=== PATIENT | female | born 1950 | race Caucasian/White ===

== ENCOUNTER 2020-05-13 10:30 | Emergency (ER) | payer OTHER ==
--- NOTE | 2020-05-13 10:52 | PDOC ---
History of Present Illness - General Chief Complaint: Injury Stated Complaint: FELL Time Seen by Provider: 05/13/20 10:51 History Source: Patient Exam Limitations: No Limitations - History of Present Illness Initial Comments: 69 y/o female presenting to [facility] complaining of episodic bifrontal headache and difficulty walking after falling twice over the past two weeks. Reports both falls were mechanical trips. Denies LOC, N/V, or retrograde amnesia. Able to walked immediately after the incidents. Thor weakness in her left arm and leg after the initial fall. Evaluated by her PCP and sent to this department for further eval, but left prior to medical evaluation. Pt fell again the next day. No acute changes this morning. Partner at bedside reports the pt has displayed difficulty walking up and down stairs. Pt denies blurry / change in vision, change in hearing, difficulty speaking, or facial asymmetry. States the weakness in her arm and leg have "basically resolved." Denies taking any AC. H/o Lupus not on modulating medications. Past History - Travel History Traveled outside of the country in the last 30 days: No Close contact w/someone who was outside of country & ill: No - Medical History Allergies/Adverse Reactions: Allergies Allergy/AdvReac Type Severity Reaction Status Date / Time latex Allergy Verified 05/07/20 12:05 Home Medications: Ambulatory Orders Aspirin [ASA -] 81 mg PO DAILY 05/07/20 Lisinopril 20 mg PO BID 05/07/20 Aspirin/Dipyridamole [Aggrenox -] 1 combo PO BID #60 capsule 05/13/20 Atorvastatin Ca [Lipitor] 40 mg PO HS #30 tablet 05/13/20 HTN: Yes Other medical history: Lupus Review of Systems - Review of Systems Able to Perform ROS?: Yes Comments:: 10 point review of systems completed. All systems negative except as noted above. *Physical Exam - Physical Exam Vital signs and nursing notes reviewed. Constitutional- Well-developed, well-nourished adult female in no acute distress or obvious discomfort. Found semi-fowlers on hospital bed. Answered all questions appropriately and completely. Head- Normocephalic. No obvious external signs of trauma. No facial bone tenderness. No Raccoon eyes. Eyes- Pupils 4mm and PERRL. EOMI. Sclerae white. Conjunctiva moist and not injected. Ears- Hearing grossly intact. External auditory canals and tympanic membranes pearly sosa. No Polk's sign. Nose- No nasal discharge. Neck- Supple, trachea is midline. No midline or paraspinal cervical tenderness. Able to laterally rotate neck >45 degrees without difficulty. Cardiovascular / Chest- Regular rate and regular rhythm. No murmur, rubs, cli cks, or gallops. Peripheral pulses- radial pulses full. Respiratory- Breathing unlabored. Speaking in multi-word responses without pausing. Equal chest rise and fall. Clear to auscultation bilaterally. No stridor, no wheezing, no rhonchi. Gastrointestinal- abdomen is soft, non-tender, non-distended. Neuro- Alert and oriented x4. Moving all four extremities spontaneously. No facial asymmetry. No slurred speech. No focal deficits. No upper or lower extremity drift. Cranial nerves intact. Sensation to all four extremities intact. Proximal and distal strength 5/5. Male Model strength 5/5 - equal and symmetric. Plantar flexion and dorsiflexion 5/5. No nuchal rigidity. Abnormal left sided finger to nose and heel to montano. Skin- Warm, dry, and intact. No bruising or other signs of trauma. Back- No midline thoracic or lumbar spinal or paraspinal tenderness. No overlying skin changes. Psych- Affect- appropriate. Mood- normal. Speech was non-labored, non- pressured. Medical Decision Making - Medical Decision Making 69 y/o female presenting with headaches, improving left side weakness, and disequilibrium. Afebrile. Vitals unremarkable for hypotension or tachycardia. Physical exam as described above. DDx includes subdural hematoma vs CVA vs TIA vs post-concussive syndrome. HCT remarkable for left lacunar infarct. No acute hemorrhage. Pt declined to have blood drawn or EKG performed. Stated she did not want to be hospitalized. Spent approx. 20 minutes in total docussion with the pt encouraging admission for further neurologic evaluation. Explained risks of further injury or . Pt repeatedly declined. Stated she was afraid of hospitals and that she did not want her to be alone in their house for personal reasons. Denied concern for her physical safety in her relationship. Declined further information on [facility] [employer] for women. Pt found to be A/Ox4 with intact insight. Signed AMA form. Final AMA conversation witnessed by . Pts PCP made aware of the CT finding via telephone by ED Attending. The PCP will prescribe refill for the pts BP medication. Case discussed with Dr. Díaz of neurology service via telephone by ED Attending. Requested the pt be switched from ASA to Aggrenox and prescribed a statin. Will have his office reach out to schedule a f/u appt on Sunday. Case discussed with ED Attending Dr. Saenz. Ludwig Gresham M.D., PGY3 Emergency Medicine Residency Discharge - Discharge Information Problems reviewed: Yes Clinical Impression/Diagnosis: Lacunar infarction, CVA (cerebral vascular accident) Condition: Stable Disposition: AGAINST MEDICAL ADVICE - Admission No - Additional Discharge Information Prescriptions: Aspirin/Dipyridamole [Aggrenox -] 1 combo PO BID #60 capsule Atorvastatin Ca [Lipitor] 40 mg PO HS #30 tablet - Follow up/Referral Referrals: Abimael Hermosillo MD [Primary Care Provider] - Raghu Díaz MD [Staff Physician] - - Patient Discharge Instructions Patient Printed Discharge Instructions: Dipyridamole (Alternative Therapy), DI for Stroke-Ischemic, Atorvastatin Additional Instructions: You were seen today for a headache and difficulty walking. Your CT scan was concerning for a stroke. You declined to be admitted to the hospital for further evaluation. Leaving the hospital at this point is against medical advice. I have placed a referral for you to see a neurologist, Dr. Díaz. His office will call to schedule an appointment for you on Sunday. He would like you to stop taking the Aspirin and start taking a medication called Aggrenox and a statin. I have sent a prescription for both medications to your pharmacy. Take as directed on the the label. I have included packets with further information about these medications. Continue taking your blood pressure medication as prescribed by Dr. Hermosillo. He will sent a new prescription for the medication to your pharmacy. Return to the ED for new or worsening symptoms. Print Language: BELIZEAN - Post Discharge Activity
[2020-05-13 10:58] VITALS: BP 192/80; PULSE 65; TEMP 97.9; BMI 23.2
--- NOTE | 2020-05-13 13:04 | PDOC ---
Attending Attestation - Resident Resident Name: Ludwig Gresham - ED Attending Attestation I have performed the following: I have examined & evaluated the patient, The case was reviewed & discussed with the resident, I agree w/resident's findings & plan, Exceptions are as noted - HPI HPI: 05/13/20 13:04 69 years old hypertension presents with unsteady gait and falls - Physicial Exam PE: 05/13/20 13:04 Vitals: Triage Vital signs reviewed General Appearance: No acute distress, well nourished well developed, Head: Atraumatic, Eyes: Pupils equal reactive round, extraocular movement intact Neck: Supple; no Nucal rigidity Chest Wall: Nontender Cardiac: Regular rate and rhythym, no murmurs, no rubs, no gallops, Lungs: Clear to auscultation bilateral, good air movement bilaterally, Abdomen: Soft, non distended, normal bowel sounds, non tender to palpation Extremities: Full range of motion to all extremities, no cyanosis, clubbing, or edema Skin: Warm and dry, no rashes or lesions, no rash, no petechiae Neuro: AOX3; cranial Nerves 2-12 grossly intact, strength intact to all extremities, sensation intact to all extremities, heel-to-toe unsteady veers to the left, difficulty with left hand and [id number] Psych: Normal mood, normal affect - Medical Decision Making 69 years old with hypertension presents to the ED for several month history of unsteadiness and falls was sent to the ED last week but AMA prior to evaluation today was amenable to CT but refused blood work Her physical exam showed difficulty with left hand [id number] and slight gait unsteadiness deviating to the left. Her head CT demonstrated a lacunar infarct age-indeterminate Despite greater than 20 minutes at the bedside I am unable to convince the patient to stay in the hospital for neurologic consultation MRI and further evaluation. I have spoken to the patient's primary care doctor who will follow the patient up I have arranged for the patient to be seen by neurology after discussion with Dr. Díaz neurology will start the patient on Aggrenox twice daily simvastatin 40 mg daily she will follow-up next week with her PCP and neurologist she was advised that she can return to the ED at anytime for completion of her work-up and evaluation. Patient understands the risk of a second or worsening stroke but is adamant that she does not want to stay in the hospital The patient is presenting with stroke like symptoms. I am concerned that this may be a CVA. The patient has verbalized understanding of my concerns. The patient is clinically sober and appears free from distracting injury. The patient appears to have intact insight, judgment, and reason. In my opinion, this patient has the capacity to make decisions The risks of leaving against medical advice without further evaluation treatment were discussed with the patient. These risks include worsening stroke , permanant disability. The patient indicated understanding of these risks and appeared to have the capacity to make this decision. The patient is unwilling to stay for a further evaluation MRI neurologic evaluation. Patient is unwilling to remain for additional monitoring. Patient is refusing further care and leaving against medical advice I'm unable to convince the patient to stay. I have asked the patient to return as soon as possible to complete his/her evaluation. I have spoken with the patient's primary care doctor to arrange follow-up for with her PCP as well as with neurology 05/13/20 16:22 Discharge - Discharge Information Problems reviewed: Yes Clinical Impression/Diagnosis: Lacunar infarction, CVA (cerebral vascular accident) Condition: Stable Disposition: AGAINST MEDICAL ADVICE - Additional Discharge Information Prescriptions: Aspirin/Dipyridamole [Aggrenox -] 1 combo PO BID #60 capsule Atorvastatin Ca [Lipitor] 40 mg PO HS #30 tablet - Follow up/Referral Referrals: Abimael Hermosillo MD [Primary Care Provider] - Raghu Díaz MD [Staff Physician] - - Patient Discharge Instructions Patient Printed Discharge Instructions: Dipyridamole (Alternative Therapy), DI for Stroke-Ischemic, Atorvastatin Additional Instructions: You were seen today for a headache and difficulty walking. Your CT scan was concerning for a stroke. You declined to be admitted to the hospital for further evaluation. Leaving the hospital at this point is against medical advice. I have placed a referral for you to see a neurologist, Dr. Díaz. His office will call to schedule an appointment for you on Sunday. He would like you to stop taking the Aspirin and start taking a medication called Aggrenox and a statin. I have sent a prescription for both medications to your pharmacy. Take as directed on the the label. I have included packets with further information about these medications. Continue taking your blood pressure medication as prescribed by Dr. Hermosillo. He will sent a new prescription for the medication to your pharmacy. Return to the ED for new or worsening symptoms. Print Language: SYRIAC - Post Discharge Activity
== END 2020-05-13 13:25 | disposition left against medical advice (07) ==
LOC: FER 10:30
DX: I63.81 Other cerebral infarction due to occlusion or stenosis of small artery (principal); I63.50 Cerebral infarction due to unspecified occlusion or stenosis of unspecified cerebral artery
CPT/HCPCS: 70450-TC; 99285-25

== ENCOUNTER 2021-02-22 10:57 | Emergency (ER) | payer OTHER ==
[2021-02-22] MEDS ORDERED: FLUORESCEIN NA 1 EA STRIP OD ONE (11:08)
[2021-02-22] MEDS ORDERED: TETRACAINE 0.5% HCL 0.6ML DROPPER.BOTTLE OD ONE (11:08)
[2021-02-22] MEDS ORDERED: TETRACAINE 0.5% OPHTH SOLN 2 ML BOTTLE ONE (11:09)
[2021-02-22] MEDS ORDERED: FLUORESCEIN NA 1 EA STRIP ONE (11:09)
[2021-02-22 11:10] VITALS: BP 176/98; PULSE 92; TEMP 98.9; BMI 23.6
== END 2021-02-22 11:34 | disposition home or self-care (01) ==
LOC: FER 10:57
DX: B02.9 Zoster without complications (principal)
CPT/HCPCS: 99283-25

== ENCOUNTER 2023-09-20 11:15 | Emergency (ER) | payer OTHER ==
[2023-09-20 11:22] VITALS: BP 158/62; PULSE 70; RESP 18; TEMP 97.8; BMI 28.5
[2023-09-20 11:54] LABS: INR 1.32 (0.83-1.09); PROTHROMBIN TIME (PATIENT) 15.3 SEC (9.7-13.0)
[2023-09-20 11:57] LABS: ACTIVATED PTT 49.1 SECONDS (25.2-36.5)
[2023-09-20 11:58] LABS: HEMATOCRIT 26.9 % (32.4-45.2); HEMOGLOBIN 8.7 G/dL (10.7-15.3); MCH 30.7 pg (25.7-33.7); MCHC 32.4 g/dl (32.0-36.0); MEAN CELL VOLUME 94.6 fl (80-96); MEAN PLT VOLUME 10.7 fl (7.5-11.1); PLATELET COUNT 91.4 10^3/uL (134-434); RBC 2.84 10^6/uL (3.60-5.2); RDW 15.5 % (11.6-15.6); WHITE BLOOD COUNT 2.7 10^3/uL (4.0-10.8)
[2023-09-20 12:20] LABS: PLATELET ESTIMATE SLT DECREASE
[2023-09-20 12:31] LABS: ALBUMIN 3.1 g/dl (3.4-5.0); BILIRUBIN,TOTAL 1.4 mg/dl (0.2-1); CALCIUM 8.2 mg/dl (8.5-10.1); CREATININE 0.4 mg/dl (0.6-1.3); POTASSIUM 3.7 mmol/L (3.5-5.1); TOT PROT 7.3 g/dl (6.4-8.2)
== END 2023-09-20 13:25 | disposition home or self-care (01) ==
LOC: FER 11:15
DX: R79.9 Abnormal finding of blood chemistry, unspecified (principal); D64.9 Anemia, unspecified
CPT/HCPCS: 36415; 80053; 82272; 85027; 85610; 85730; 86850; 86900; 86901; 99283-25

== ENCOUNTER 2024-04-30 06:30 | Emergency (ER) | payer MEDICARE, OTHER ==
[2024-04-30 06:52] VITALS: BP 133/61; PULSE 73; RESP 16; TEMP 97.9; BMI 28.5
[2024-04-30 07:56] LABS: HEMATOCRIT 30.4 % (32.4-45.2); HEMOGLOBIN 9.7 G/dL (10.7-15.3); MCH 32.8 pg (25.7-33.7); MCHC 31.9 g/dl (32.0-36.0); MEAN CELL VOLUME 103.1 fl (80-96); MEAN PLT VOLUME 9.8 fl (7.5-11.1); PLATELET COUNT 85.4 10^3/uL (134-434); RBC 2.95 10^6/uL (3.60-5.2); WHITE BLOOD COUNT 2.7 10^3/uL (4.0-10.8)
[2024-04-30 08:19] LABS: ALBUMIN 2.6 g/dl (3.4-5.0); BILIRUBIN,TOTAL 2.8 mg/dl (0.2-1); CREATININE 0.6 mg/dl (0.6-1.3); POTASSIUM 3.9 mmol/L (3.5-5.1)
[2024-04-30 08:52] LABS: MACROCYTOSIS 1+; PLATELET ESTIMATE DECREASED
[2024-04-30 09:42] LABS: N-TERMINAL BNP 258.7 pg/ml (5-125)
== END 2024-04-30 11:12 | disposition home or self-care (01) ==
LOC: FER 06:30
DX: M79.89 Other specified soft tissue disorders (principal); R60.0 Localized edema
CPT/HCPCS: 36415; 80053; 83880; 85025; 99283-25